=== PATIENT | male | born 1975 | race Caucasian/White ===

== ENCOUNTER 2018-12-25 07:05 | Day surgery (SDC) | payer OTHER ==
[2018-12-24 11:49] VITALS: BMI 33.2
[2018-12-25] MEDS ORDERED: LIDOCAINE HCL 1%, 10 MG/ML (20ML VIAL) ONE (08:33)
[2018-12-25] MEDS ORDERED: BUPIVACAINE HCL/PF 0.5% (5MG/ML) 10 ML VIAL ONE (08:33)
[2018-12-25] MEDS ORDERED: MIDAZOLAM HCL 2 MG/2 ML SINGLE DOSE VIAL ONE (08:48)
[2018-12-25] MEDS ORDERED: ceFAZolin SODIUM 1 GM VIAL ONE (08:59)
[2018-12-25] MEDS ORDERED: DEXAMETHASONE SOD PHOSPHATE 4 MG/1 ML VIAL ONE (08:59)
[2018-12-25] MEDS ORDERED: ceFAZolin SODIUM 1 GM VIAL IVPB ONE (09:00)
[2018-12-25] MEDS ORDERED: PROPOFOL 20 ML ONE ×3 (09:00)
[2018-12-25] MEDS ORDERED: LIDOCAINE HCL/PF 2% SDV 5ML VIAL ONE (09:01)
[2018-12-25] MEDS ORDERED: BUPIVACAINE HCL/PF (5 MG/ML) 30 ML VIAL IJ ONE (09:04)
[2018-12-25] MEDS ORDERED: LIDOCAINE HCL 1%, 10 MG/ML (20ML VIAL) NR ONE (09:04)
[2018-12-25] MEDS ORDERED: oxyCODONE HCL 5 MG TABLET PO PRN (10:21)
[2018-12-25 12:27] VITALS: BP 120/74; PULSE 79; TEMP 98
[2018-12-25] MEDS ORDERED: oxyCODONE HCL 5 MG TABLET ONE (12:41)
--- NOTE | 2018-12-28 18:12 | PATH ---
Surgical Pathology Report Patient Name: GABRIEL LANDON [facility]. Rec. #: [id number] /Age/Gender: 1975 (Age: 43) / M Account: [id number] Location: [facility] SURGICAL Taken: 12/25/2018 Received: 12/25/2018 Reported: 12/28/2018 Physicians: ZULMA Myles DPM Specimen(s) Received BASE 1ST PROXIMAL PHALANX RIGHT Clinical History Painful hallux valgus capsulitis Final Diagnosis BASE, FIRST PROXIMAL PHALANX, RIGHT, KUO'S BUNIONECTOMY: BONE WITH DEGENERATIVE CHANGES. Electronically Signed Ashley Alvarado M.D. Gross Description Received in formalin labeled "bone first proximal phalanx," are 2 henley-yellow portions of bone measuring 2.5 x 2.0 x 0.5 cm and 2.4 x 2.0 x 1.5 cm. Mechanical Car Checker sections are submitted in one cassette, following decalcification. /12/25/201812/25/2018
--- NOTE | 2019-01-27 17:14 | OP ---
DATE OF OPERATION: 12/25/2018 SURGERY: Chiang bunionectomy, right foot. A 5.0-cm linear longitudinal incision was made medial and parallel to the long axis of the 1st metatarsophalangeal joint. The incision was deepened through subcutaneous tissue. All bleeding vessels were clamped, divided, and ligated. The incision was continued down to the capsule of the 1st metatarsophalangeal joint, and the joint itself was identified. All capsular and periosteal tissue was dissected carefully away from the base of the proximal phalanx and the head of the 1st metatarsal of the right foot. The base of the 1st proximal phalanx was delivered through the wound and transected with an oscillating saw. The base of the proximal phalanx was then removed completely. Attention was drawn to the medial eminence of the 1st metatarsal where an osteotome and mallet were utilized to remove the medial eminence of the 1st metatarsal. All collateral ligaments and sesamoid structures were freed from their degenerative attachments around the 1st metatarsal head. A copious flush of normal saline was introduced into the surgical site, and all tissues were cleansed. At this time, a 0.062 Vic wire was introduced from the wound site out distal through the end of the toe. This same wire was now retrograded into the 1st metatarsal head so as to maintain the position of the big toe in a correct and distracted position. Capsular and deep periosteal structures were sutured back into place with 2-0 Dexon interrupted sutures. Subcutaneous tissues were coapted with 3-0 Dexon sutures. Skin was coapted and closed with 5-0 nylon suture. A dry sterile dressing was applied in a mildly compressive fashion, and the patient was removed from the surgical table. ZULMA [id number]
== END 2018-12-25 13:30 | disposition home or self-care (01) ==
LOC: JASU-SURG 07:05
PROVIDERS: ATTEND Podiatrist Foot Surgery
PROC: 0QSN04Z Reposition Right Metatarsal with Internal Fixation Device, Open Approach (ICD-10-PCS; principal; 2018-12-25 08:30)
DX: M21.611 Bunion of right foot (principal)
CPT/HCPCS: 82962; 88305-TC; 88311-TC

== ENCOUNTER 2022-11-18 04:40 | Day surgery (SDC) | payer OTHER ==
[2022-11-12 19:35] VITALS: BMI 31.0
[2022-11-18] MEDS ORDERED: FENTANYL CITRATE/PF 50 MCG/ML VIAL ONE ×2 (08:16→09:07)
[2022-11-18] MEDS ORDERED: MIDAZOLAM HCL 2 MG/2 ML SINGLE DOSE VIAL ONE (08:16)
[2022-11-18] MEDS ORDERED: PROPOFOL 20 ML ONE ×2 (08:16→09:20)
[2022-11-18] MEDS ORDERED: LIDOCAINE HCL/PF 2% SDV 5ML VIAL ONE (08:28)
[2022-11-18] MEDS ORDERED: DEXAMETHASONE SOD PHOSPHATE 4 MG/1 ML VIAL ONE (08:28)
[2022-11-18] MEDS ORDERED: BUPIVACAINE HCL/PF 0.5% (5MG/ML) 10 ML VIAL ONE (08:28)
[2022-11-18] MEDS ORDERED: LIDOCAINE HCL 2% (20ML MULTI-DOSE VIAL) ONE (08:31)
[2022-11-18] MEDS ORDERED: ceFAZolin SODIUM 1 GM VIAL ONE (09:05)
[2022-11-18] MEDS ORDERED: ceFAZolin SODIUM 1 GM VIAL IVPB ONE (09:05)
[2022-11-18] MEDS ORDERED: BUPIVACAINE HCL/PF 0.5% (5MG/ML) 10 ML VIAL PNB ONE ×2 (09:09)
[2022-11-18] MEDS ORDERED: LIDOCAINE HCL 2% (50ML VIAL) PNB ONE ×2 (09:09)
[2022-11-18] MEDS ORDERED: ACETAMINOPHEN 1000 MG/100 ML BAG IVPB PRN (10:09)
[2022-11-18] MEDS ORDERED: oxyCODONE HCL 5 MG TABLET PO PRN ×2 (10:09)
[2022-11-18] MEDS ORDERED: ONDANSETRON 4 MG/2 ML VIAL IVPUSH PRN (10:09)
[2022-11-18] MEDS ORDERED: LACTATED RINGERS SOLUTION 1,000 ML IV SCH (10:15)
[2022-11-18 12:05] VITALS: RESP 20; TEMP 97.7
[2022-11-18 12:51] VITALS: BP 129/83; PULSE 69
== END 2022-11-18 12:43 | disposition home or self-care (01) ==
LOC: JASU-SURG 04:40
PROVIDERS: ATTEND Podiatrist
PROC: 0SU Lower Joints, Supplement (ICD-10-PCS; principal; 2022-11-18 09:00)
DX: M20.41 Other hammer toe(s) (acquired), right foot (principal)
CPT/HCPCS: 73630-TC-RT-FY; 82962; 88305-TC; 88311-TC; 94760